=== PATIENT | female | born 1980 | race American Indian/Alaskan Native ===

== ENCOUNTER → 2017-12-05 | Day surgery (SDC) | payer OTHER ==
[~2017-12-05] MED LIST: AVAPRO300 MG PO; LABETALOL HCL200 MG PO; NORVASC10 MG PO; PRENATAL CAPLE1 EACH PO
== END | disposition home or self-care (01) ==
LOC: ADM 12-03 14:15 → CIR.AMB 08:46
DX: D06.0 Carcinoma in situ of endocervix (principal); N87.1 Moderate cervical dysplasia